=== PATIENT | female | born 1965 | race African-American/Black ===

== ENCOUNTER 2017-05-03 13:22 | Emergency (ER) | payer SELFPAY ==
[~2017-05-03 13:22] MED LIST: EPINEPHrine 1 MG/10 ML Abboject SYRINGE ONE; Sodium Bicarb 50 MEQ/50 ML Abboject 8.4% SYRINGE ONE
== END 2017-05-03 16:00 | disposition expired ==
LOC: NAV ERS 13:22
DX: I46.9 Cardiac arrest, cause unspecified (principal)
CPT/HCPCS: 92950; J0171